=== PATIENT | female | born 1960 ===

== ENCOUNTER 2020-05-31 08:28 | Outpatient (CLI) | payer OTHER, SELFPAY ==
--- NOTE | ~2020-05-31 | XR_ITS ---
XR abdomen/kub 1V 05/31/2020 08:51 INDICATION: Chronic cystitis TECHNIQUE: KUB COMPARISON: None FINDINGS: Bowel gas pattern is normal. There is fecal impaction of the colon. There is no evidence of free air, mass, organomegaly, ascites or obstruction. No abnormal calculi are seen. The bones appe ar intact. IMPRESSION: 1: Fecal impaction of the colon. Reviewed, dictated and finalized at location [facility].
--- NOTE | ~2020-05-31 | CT_ITS ---
EXAMINATION: CT abdomen pelvis wo con DATE: 05/31/2020 09:01 INDICATION: Right abdominal pain for 10 months. Cystitis. TECHNIQUE: Computed tomography (CT) of the abdomen and pelvis was performed without intravenous contr ast. Automated exposure control and iterative reconstruction technique were employed. Exam dose: 291 .38 mGy-cm total exam DLP. COMPARISON: None. FINDINGS: The lung bases are clear of infiltrate or consolidation. Normal heart size. No pericardial or pleural effusion. Bilateral breast implants are noted. History of breast cancer. The liver, spleen, pancreas, adrenal glands and kidneys appear unremarkable on this limited noncontra st examination. The gallbladder is present. No bile duct or pancreatic duct dilatation. No urinary tract calculus or hydroureteronephrosis. The urinary bladder is unremarkable. Normal caliber of the abdominal aorta. No intraperitoneal or retroperitoneal or pelvic mass lesion or adenopathy or ascites. Normal appendix is a prominent amount of fecal material throughout most of the colon and rectum. No b owel obstruction, bowel wall thickening, pneumatosis or intraperitoneal free air. The urinary bladder is unremarkable. Status post hysterectomy. No suspicious osteolytic or osteoblastic lesions are noted. IMPRESSION: Normal appendix No urinary tract calculus or hydroureteronephrosis. Unremarkable urinary bladder Reviewed, dictated and finalized at [facility]. Reviewed, dictated and finalized at location A. IMPRESSION: Normal appendix No urinary tract calculus or hydroureteronephrosis. Unremarkable urinary bladde r
== END 2020-05-31 08:29 | disposition home or self-care (01) ==
LOC: ANHIMG 08:41
PROVIDERS: Visit Provider Nurse Practitioner Adult Health
DX: N30.20 Other chronic cystitis without hematuria (principal); K56.41 Fecal impaction
CPT/HCPCS: 74018; 74176